=== PATIENT | male | born 2000 | race Caucasian/White ===

== ENCOUNTER 2018-07-13 20:33 | Emergency (ER) | payer BC, OTHER ==
[2018-07-13] MEDS ORDERED: Bacitracin/Neomycin/Polymyxin B Oint 0.9 GM U/D Packet TOP ONE (20:51)
--- NOTE | 2018-07-13 21:51 | EDM.PDOC ---
ED HPI GENERAL MEDICAL PROBLEM - General Chief Complaint: Laceration Stated Complaint: laceration to left above knee Time Seen by Provider: 07/13/18 20:35 Source of Information: Reports: Patient History Limitations: Reports: No Limitations - History of Present Illness INITIAL COMMENTS - FREE TEXT/NARRATIVE: Patient sustained laceration to anterior left thigh (above knee) [facility]. No other complaints. Ambulated into ER without difficulty. Tetanus updated appropriately when he entered high school. - Related Data Allergies Allergy/AdvReac Type Severity Reaction Status Date / Time cefprozil [From Cefzil] Allergy Other Verified 07/13/18 20:35 Home Meds: Home Meds . [No Known Home Meds] 07/13/18 [History] Past Medical History - Past Health History Medical/Surgical History: Denies Medical/Surgical History ED ROS GENERAL - Review of Systems Review Of Systems: ROS reveals no pertinent complaints other than HPI. ED EXAM, SKIN/RASH Exam: See Below Exam Limited By: No Limitations General Appearance: Alert, WD/WN, No Apparent Distress Eye Exam: Bilateral Eye: EOMI Throat/Mouth: Normal Voice, No Airway Compromise Head: Atraumatic, Normocephalic Neck: Supple Respiratory/Chest: No Respiratory Distress Extremities: Normal Range of Motion, Normal Capillary Refill Neurological: Alert, Oriented, Normal Cognition, Normal Gait, No Motor/Sensory Deficits Psychiatric: Normal Affect, Normal Mood Skin: Warm, Dry, Other (4cm horizontal laceration anterior thigh above left knee.) ED SKIN PROCEDURES - Laceration/Wound Repair Left Anterior Thigh Lac/Wound length In cm: 4 Appearance: Subcutaneous, Mildly Contaminated Distal NVT: Neuro & Vascular Intact Anesthetic Type: Local Local Anesthesia - Lidocaine (Xylocaine): 1% Plain Local Anesthetic Volume: 5cc Skin Prep: Providone-Iodine (Betadine) Exploration/Debridement/Repair: Wound Explored, In a Bloodless Field, Explored to Base, Other (aggresive scrubbing to remove grease from wound margins prior to closure) Closed with: Sutures Suture Size: 3-0 # of Sutures: 3 Suture Type: Nylon, Other (2 mattress, one simple. ) Sterile Dressing Applied: Nurse Tetanus Status Addressed: Yes Complications: No Course - Vital Signs Last Recorded V/S: Last Vital Signs Temp 37.0 C 07/13/18 20:33 Pulse 78 07/13/18 20:33 Resp 14 07/13/18 20:33 BP 121/65 07/13/18 20:33 Pulse Ox 100 07/13/18 20:33 - Orders/Labs/Meds Meds: Medications Discontinued Medications Generic Name Dose Route Start Last Admin Trade Name Domenic PRN Reason Stop Dose Admin Lidocaine HCl 5 ml 07/13/18 20:51 07/13/18 21:21 Xylocaine-Mpf 1% INJECT 07/13/18 20:52 5 ml ONETIME ONE Administration Neomycin/Polymyxin/Bacitracin 1 each 07/13/18 20:51 07/13/18 21:21 Triple Antibiotic Oint TOP 07/13/18 20:52 1 each ONETIME ONE Administration - Re-Assessments/Exams Free Text/Narrative Re-Assessment/Exam: 07/13/18 22:45 Laceration repaired. Wound care and precautions reviewed. Patient is going on a snowmobile trip next weekend and will have sutures removed once he returns. Departure - Departure Time of Disposition: 21:49 Disposition: Home, Self-Care 01 Condition: Good Clinical Impression: Thigh laceration Qualifiers: Encounter type: initial encounter Laterality: left Qualified Code(s): S71.112A - Laceration without foreign body, left thigh, initial encounter - Discharge Information *PRESCRIPTION DRUG MONITORING PROGRAM REVIEWED*: Not Applicable *COPY OF PRESCRIPTION DRUG MONITORING REPORT IN PATIENT WILD: Not Applicable Instructions: Stitches, David, or Adhesive Wound Closure, [id number] Forms: ED Department Discharge Additional Instructions: Have sutures removed when you get back from your snowmobile trip. It is ok to leave them in 10-12 days. Keep area clean, apply antibiotic ointment while healing. Follow up for recheck if you have any problems, such as signs of infection.
== END 2018-07-13 22:00 | disposition home or self-care (01) ==
LOC: LL.ED 20:33
DX: S71.112A Laceration without foreign body, left thigh, initial encounter (principal); Z88.1 Allergy status to other antibiotic agents; W29.8XXA Contact with other powered hand tools and household machinery, initial encounter
CPT/HCPCS: 12002; 99282; J2001